=== PATIENT | male | born 1940 | race Caucasian/White ===

== ENCOUNTER → 2016-06-03 | Outpatient (CLI) | payer MEDICARE, OTHER ==
[~2016-06-03] MED LIST: CLOP75TA28 PO; FLUT250M2 IN; LORA2TAB89 PO; RANI150C11 PO; SIMV20TA90 PO; TAM04C PO; TRAZ50TA2 PO
== END | disposition home or self-care (01) ==
LOC: Rad HDHVI 10:06
PROVIDERS: ATTEND Internal Medicine Cardiovascular Disease
DX: J84.10 Pulmonary fibrosis, unspecified (principal)
CPT/HCPCS: 82103; 93306

== ENCOUNTER → 2016-09-26 | Outpatient (CLI) | payer MEDICARE, OTHER ==
[2016-09-26 09:50] VITALS: BP 121/78
[2016-09-26 10:35] VITALS: BP 121/76
== END | disposition home or self-care (01) ==
LOC: Rad HDHVI 09:28
PROVIDERS: ATTEND Internal Medicine Cardiovascular Disease
DX: I71.4 Abdominal aortic aneurysm, without rupture (principal); R42 Dizziness and giddiness; R06.02 Shortness of breath; Z87.448 Personal history of other diseases of urinary system
CPT/HCPCS: 74175; 82565; G0463

== ENCOUNTER → 2017-01-14 | Outpatient (CLI) | payer MEDICARE ==
[~2017-01-14] MED LIST changes: +CYANOCOBALAMIN (B-12) 1000 MCG/1 ML VIAL IM ONE; +CYANOCOBALAMIN (B-12) 1000 MCG/1 ML VIAL ONE
[2017-01-14 10:55] VITALS: BP 129/63
[2017-01-14 12:15] VITALS: BP 114/58
== END ==
LOC: CHF HDHVI 10:56
PROVIDERS: ATTEND Internal Medicine Cardiovascular Disease
DX: I50.9 Heart failure, unspecified (principal); R06.02 Shortness of breath; R53.83 Other fatigue; Z79.899 Other long term (current) drug therapy
CPT/HCPCS: 96372; G0463; J3420

== ENCOUNTER → 2017-01-26 | Outpatient (CLI) | payer MEDICARE ==
[~2017-01-26] MED LIST changes: +ADENOSINE 66 MG in GIVE UN-DILUTED 0 ML IV ONE; +ADENOSINE 90 MG/30 ML INJ IV ONE; -CYANOCOBALAMIN (B-12) 1000 MCG/1 ML VIAL IM ONE; -CYANOCOBALAMIN (B-12) 1000 MCG/1 ML VIAL ONE
== END | disposition home or self-care (01) ==
LOC: Rad HDHVI 10:00
PROVIDERS: ATTEND Internal Medicine Cardiovascular Disease
DX: I95.9 Hypotension, unspecified (principal); G20 Parkinson's disease; I25.2 Old myocardial infarction; I25.10 Atherosclerotic heart disease of native coronary artery without angina pectoris; E78.00 Pure hypercholesterolemia, unspecified; Z95.0 Presence of cardiac pacemaker
CPT/HCPCS: 78452; 93005; 93306; 96374; 96375; A9500; J0153

== ENCOUNTER → 2017-03-04 | Outpatient (CLI) | payer MEDICARE ==
[~2017-03-04] MED LIST changes: -ADENOSINE 66 MG in GIVE UN-DILUTED 0 ML IV ONE; -ADENOSINE 90 MG/30 ML INJ IV ONE; +IOHEXOL 350 MG/ML 100ML IJ ONE; +READI-CAT 2 (BARIUM SULF)(VANILLA SMOOTHIE) 450ML ONE
[2017-03-04 09:45] VITALS: BP 133/71
[2017-03-04 10:55] VITALS: BP 141/69
== END | disposition home or self-care (01) ==
LOC: Rad HDHVI 09:35
PROVIDERS: ATTEND Internal Medicine Cardiovascular Disease
DX: J84.89 Other specified interstitial pulmonary diseases (principal); J84.112 Idiopathic pulmonary fibrosis; R59.9 Enlarged lymph nodes, unspecified; Q33.8 Other congenital malformations of lung; I70.0 Atherosclerosis of aorta; N40.0 Benign prostatic hyperplasia without lower urinary tract symptoms; K57.30 Diverticulosis of large intestine without perforation or abscess without bleeding; I95.9 Hypotension, unspecified; G20 Parkinson's disease; R64 Cachexia
CPT/HCPCS: 71260; 74177; 82565; 96374; G0463; Q9967

== ENCOUNTER → 2017-03-18 | Outpatient (CLI) | payer MEDICARE ==
[~2017-03-18] VITALS: Ht 1 cm; Wt 0.5 kg
[~2017-03-18] MED LIST changes: +ACE30IS IN; +ALBU0.084 IN; +DIGO1TAB37 PO; +DOXY100C2 PO; +FINA5TAB4 PO; +FLU01T PO; +GENTAMICIN SULF 80 MG/2 ML VIAL ONE; +GENTAMICIN SULFATE 160 MG in D5W 5% 100 ML IV ONE; -IOHEXOL 350 MG/ML 100ML IJ ONE; +MEGE40TA15 PO; +MONT10TA34 PO; +POLY33504 PO; +PRE1T PO; -READI-CAT 2 (BARIUM SULF)(VANILLA SMOOTHIE) 450ML ONE; +ROFL1TAB2 PO; +SACC1CAP3 PO; +SIMV40TA96 PO; +TAMS0.4C36 PO; +VANCOMYCIN 1GM/250ML 250 ML IV ONE; +methylPREDNISolone SOD SUCC 125 MG/2 ML VL IM ONE; +methylPREDNISolone SOD SUCC 125 MG/2 ML VL ONE
[2017-03-18 15:58] LABS: Albumin 3.4 g/dL (3.4-5.0); BUN/Creatinine Ratio 22.2; Calcium 8.6 mg/dL (8.5-10.1); Magnesium 2.6 mg/dL (1.6-2.6); Potassium 3.5 mmol/L (3.5-5.1)
[2017-03-18 16:01] LABS: Bilirubin, Total 0.7 mg/dL (0.2-1.0); Total Protein 7.2 g/dL (6.4-8.2)
[2017-03-18 16:45] VITALS: BP 110/60
== END | disposition home or self-care (01) ==
LOC: Rad HDHVI 13:34
PROVIDERS: ATTEND Internal Medicine Cardiovascular Disease
DX: I10 Essential (primary) hypertension (principal); E55.9 Vitamin D deficiency, unspecified; I48.91 Unspecified atrial fibrillation; J44.9 Chronic obstructive pulmonary disease, unspecified; G20 Parkinson's disease; J40 Bronchitis, not specified as acute or chronic; Z79.899 Other long term (current) drug therapy
CPT/HCPCS: 36415; 80053; 80162; 82306; 83735; 96365; 96367; 96375; G0463; J1580; J2930; J3370

== ENCOUNTER → 2017-03-25 | Outpatient (CLI) | payer MEDICARE ==
[~2017-03-25] MED LIST changes: +ACETAMINOPHEN 500 MG TAB PO ONE; +CYANOCOBALAMIN (B-12) 1000 MCG/1 ML VIAL IM ONE; +CYANOCOBALAMIN (B-12) 1000 MCG/1 ML VIAL ONE; -GENTAMICIN SULF 80 MG/2 ML VIAL ONE; -GENTAMICIN SULFATE 160 MG in D5W 5% 100 ML IV ONE; +MVI in SODIUM CHLORIDE 0.9% 1,010 ML ONE; +MVI in SODIUM CHLORIDE 0.9% 500 ML IVB ONE; -VANCOMYCIN 1GM/250ML 250 ML IV ONE; -methylPREDNISolone SOD SUCC 125 MG/2 ML VL IM ONE; -methylPREDNISolone SOD SUCC 125 MG/2 ML VL ONE
[2017-03-25 11:59] LABS: Basophils # (auto) 0 uL; Basophils % (auto) 0.2 % (0.0-2.0); Eosinophils # (auto) 0 uL; Eosinophils % (auto) 0.4 % (0.0-7.0); Hematocrit 40.9 % (41.0-53.0); Hemoglobin 14.1 g/dL (13.5-17.5); Lymphocytes # (auto) 0.6 uL; Mean Corpuscular Hemoglobin 32.7 pg (28.0-32.0); Mean Corpuscular Hgb Conc. 34.6 g/dL (32.0-36.0); Mean Corpuscular Volume 94.6 fL (80.0-100.0); Monocytes # (auto) 0.5 uL; Monocytes % (auto) 7.8 % (0.0-12.0); Neutrophils # (auto) 5.8 uL; Neutrophils % (auto) 82.6 % (37.0-80.0); Nucleated Red Blood Cells % 0.2 %; Platelet Count (auto) 75 10^3/uL (140-450); Red Blood Cells 4.32 10^6/uL (4.5-5.90)
[2017-03-25 12:35] LABS: BUN/Creatinine Ratio 23.5; Calcium 8.5 mg/dL (8.5-10.1); Magnesium 2.8 mg/dL (1.6-2.6); Potassium 3.7 mmol/L (3.5-5.1)
[2017-03-25 13:25] VITALS: BP 112/58
== END | disposition home or self-care (01) ==
LOC: CHF HDHVI 10:22
PROVIDERS: ATTEND Internal Medicine Cardiovascular Disease
DX: I70.0 Atherosclerosis of aorta (principal); E83.42 Hypomagnesemia; I10 Essential (primary) hypertension; D64.9 Anemia, unspecified; D51.9 Vitamin B12 deficiency anemia, unspecified
CPT/HCPCS: 36415; 71046; 80048; 82607; 83735; 85025; 96365; 96366; 96372; G0463; J3411; J3420; J3475

== ENCOUNTER → 2017-03-30 | Outpatient (CLI) | payer MEDICARE ==
[~2017-03-30] MED LIST changes: -ACETAMINOPHEN 500 MG TAB PO ONE; -MVI in SODIUM CHLORIDE 0.9% 1,010 ML ONE; -MVI in SODIUM CHLORIDE 0.9% 500 ML IVB ONE; +methylPREDNISolone SOD SUCC 125 MG/2 ML VL IV ONE; +methylPREDNISolone SOD SUCC 125 MG/2 ML VL ONE
[2017-03-30 13:15] VITALS: BP 108/57
== END | disposition home or self-care (01) ==
LOC: CHF HDHVI 11:59
PROVIDERS: ATTEND Internal Medicine Cardiovascular Disease
DX: D64.9 Anemia, unspecified (principal); J44.9 Chronic obstructive pulmonary disease, unspecified; R09.3 Abnormal sputum; R05 Cough; N39.0 Urinary tract infection, site not specified
CPT/HCPCS: 87070; 87205; 96372; 96374; G0463; J2930; J3420

== ENCOUNTER 2017-04-04 16:14 | Inpatient (IN) | payer MEDICARE ==
[~2017-04-04] VITALS: Ht 1 cm; Wt 73.0 kg
[2017-04-04] MEDS: D5W/SOD CHLO 0.9% 1,000 ML IV SCH (07:00)
[~2017-04-04 16:14] MED LIST changes: -ACE30IS IN; -ALBU0.084 IN; -CYANOCOBALAMIN (B-12) 1000 MCG/1 ML VIAL IM ONE; -CYANOCOBALAMIN (B-12) 1000 MCG/1 ML VIAL ONE; -DIGO1TAB37 PO; -DOXY100C2 PO; -FINA5TAB4 PO; -FLU01T PO; -MEGE40TA15 PO; -MONT10TA34 PO; -POLY33504 PO; -PRE1T PO; -ROFL1TAB2 PO; -SACC1CAP3 PO; -SIMV40TA96 PO; -TAMS0.4C36 PO; -methylPREDNISolone SOD SUCC 125 MG/2 ML VL IV ONE; -methylPREDNISolone SOD SUCC 125 MG/2 ML VL ONE
[2017-04-04 16:30] VITALS: BP 117/73
[2017-04-04 17:00] VITALS: BP 117/74
[2017-04-04] MEDS ORDERED: DIGOXIN 0.25 MG TAB PO ONE (19:15)
[2017-04-04] MEDS ORDERED: D5W/SOD CHLO 0.9% 1,000 ML IV ONE (19:45)
[2017-04-04] MEDS ORDERED: POLY33504 PO (21:06)
[2017-04-04] MEDS ORDERED: DOXY100C2 PO (21:06)
[2017-04-04] MEDS ORDERED: SACC1CAP3 PO (21:06)
[2017-04-04] MEDS ORDERED: MEGE40TA15 PO (21:06)
[2017-04-04] MEDS ORDERED: PRE1T PO (21:06)
[2017-04-04] MEDS ORDERED: DIGO1TAB37 PO (21:06)
[2017-04-04] MEDS ORDERED: ROFL1TAB2 PO (21:06)
[2017-04-04] MEDS ORDERED: MONT10TA34 PO (21:06)
[2017-04-04] MEDS ORDERED: TAMS0.4C36 PO (21:06)
[2017-04-04] MEDS ORDERED: TRAZ50TA2 PO (21:06)
[2017-04-04] MEDS ORDERED: FINA5TAB4 PO (21:06)
[2017-04-04] MEDS ORDERED: ACE30IS IN (21:06)
[2017-04-04] MEDS ORDERED: LORA2TAB89 PO (21:06)
[2017-04-04] MEDS ORDERED: SIMV40TA96 PO (21:06)
[2017-04-04] MEDS ORDERED: ALBU0.084 IN (21:06)
[2017-04-04] MEDS ORDERED: FLU01T PO (21:06)
[2017-04-04] MEDS ORDERED: CLOP75TA28 PO (21:06)
[2017-04-04 21:34] VITALS: BP 119/61
[2017-04-04] MEDS: LORazepam 0.5 MG TAB PO PRN (22:28)
[2017-04-04] MEDS: ALBUTEROL SULF 2.5 MG/0.5ML(0.5%) NEB SOLN NEB SCH (22:50)
[2017-04-05] MEDS: MEGESTROL ACETATE 20 MG TAB PO SCH ×3 (00:20→21:30)
[2017-04-05] MEDS: traZODone HCL 50 MG TAB PO SCH ×2 (00:21→21:29)
[2017-04-05] MEDS: MONTELUKAST SODIUM 10 MG TAB PO SCH ×2 (00:21→21:29)
[2017-04-05 05:00] VITALS: BP 118/63
[2017-04-05] MEDS: ALBUTEROL SULF 2.5 MG/0.5ML(0.5%) NEB SOLN NEB SCH ×3 (05:44→19:22)
[2017-04-05] MEDS: D5W/SOD CHLO 0.9% 1,000 ML IV SCH ×2 (07:00→17:30)
[2017-04-05] MEDS: BOOST 8 ounces PO SCH ×3 (08:00→17:31)
[2017-04-05 08:47] VITALS: BP 116/60
[2017-04-05] MEDS: POLYETHYLENE GLYCOL 17 GM PWDR PO SCH (08:57)
[2017-04-05] MEDS: predniSONE 20 MG TAB PO SCH (08:58)
[2017-04-05] MEDS: FINASTERIDE 5 MG TAB PO SCH (08:58)
[2017-04-05] MEDS: CLOPIDOGREL BISULFATE 75 MG TAB PO SCH (08:58)
[2017-04-05] MEDS: DIGOXIN 0.25 MG TAB PO SCH (08:59)
[2017-04-05] MEDS: FLUDROCORTISONE ACETATE 0.1 MG TAB PO SCH (08:59)
[2017-04-05] MEDS: LORazepam 0.5 MG TAB PO PRN ×4 (09:00→21:28)
[2017-04-05] MEDS: DALIRESP 500 MCG PO SCH (09:01)
[2017-04-05] MEDS: FLORASTOR (S. BOULARDII) 250 MG CAP PO SCH (09:13)
[2017-04-05] MEDS ORDERED: FLORASTOR (S. BOULARDII) 250 MG CAP PO SCH (10:00)
[2017-04-05] MEDS: BUDESONIDE (INHALATION) 0.5 MG/2 ML NEB NEB SCH ×2 (11:45→19:22)
[2017-04-05 13:00] VITALS: BP 120/61
[2017-04-05] MEDS ORDERED: MAGNESIUM CITRATE SOLUTION 300 ML BTL PO ONE (13:30)
[2017-04-05 17:00] VITALS: BP 113/53
[2017-04-05] MEDS: TAMSULOSIN HYDROCHLORIDE 0.4 MG CAP PO SCH (17:31)
[2017-04-05 18:50] LABS: Basophils # (auto) 0 uL; Eosinophils # (auto) 0 uL; Hematocrit 41.4 % (41.0-53.0); Hemoglobin 13.7 g/dL (13.5-17.5); Lymphocytes # (auto) 0.5 uL; Lymphocytes % (auto) 7.3 % (10.0-50.0); Mean Corpuscular Hgb Conc. 33.2 g/dL (32.0-36.0); Mean Corpuscular Volume 96.6 fL (80.0-100.0); Monocytes # (auto) 0.1 uL; Neutrophils # (auto) 6.5 uL; Neutrophils % (auto) 90.7 % (37.0-80.0); Platelet Count (auto) 94 10^3/uL (140-450); Red Blood Cells 4.29 10^6/uL (4.5-5.90); White Blood Cell 7.2 10^3/uL (4.4-10.8)
[2017-04-05 19:03] LABS: INR 1.05 (0.9-1.15); Partial Thromboplastin Time 26.1 sec (22.64-33.71); Prothrombin Time 11.4 sec (9.37-12.3)
[2017-04-05 19:14] LABS: Albumin 2.7 g/dL (3.4-5.0); BUN/Creatinine Ratio 13.4; Bilirubin, Total 0.6 mg/dL (0.2-1.0); Calcium 7.7 mg/dL (8.5-10.1); Potassium 3.5 mmol/L (3.5-5.1); Total Protein 5.9 g/dL (6.4-8.2)
[2017-04-05 21:43] VITALS: BP 119/66
[2017-04-06] MEDS: ALBUTEROL SULF 2.5 MG/0.5ML(0.5%) NEB SOLN NEB SCH ×4 (00:32→19:31)
[2017-04-06] MEDS: D5W/SOD CHLO 0.9% 1,000 ML IV SCH ×3 (01:50→21:43)
[2017-04-06 03:31] VITALS: BP 119/66
[2017-04-06 05:00] VITALS: BP 105/57
[2017-04-06] MEDS: BUDESONIDE (INHALATION) 0.5 MG/2 ML NEB NEB SCH ×2 (06:48→19:31)
[2017-04-06] MEDS: BOOST 8 ounces PO SCH ×3 (08:00→18:00)
[2017-04-06] MEDS: LORazepam 0.5 MG TAB PO PRN ×3 (08:21→17:46)
[2017-04-06 09:17] VITALS: BP 108/56
[2017-04-06] MEDS: predniSONE 20 MG TAB PO SCH (11:16)
[2017-04-06] MEDS: FLUDROCORTISONE ACETATE 0.1 MG TAB PO SCH (11:16)
[2017-04-06] MEDS: MEGESTROL ACETATE 20 MG TAB PO SCH ×2 (11:16→21:24)
[2017-04-06] MEDS: DIGOXIN 0.25 MG TAB PO SCH (11:16)
[2017-04-06] MEDS: FINASTERIDE 5 MG TAB PO SCH (11:16)
[2017-04-06] MEDS: FLORASTOR (S. BOULARDII) 250 MG CAP PO SCH (11:17)
[2017-04-06] MEDS: CLOPIDOGREL BISULFATE 75 MG TAB PO SCH (11:17)
[2017-04-06] MEDS: DALIRESP 500 MCG PO SCH (11:18)
[2017-04-06] MEDS: POLYETHYLENE GLYCOL 17 GM PWDR PO SCH (11:18)
[2017-04-06 13:11] VITALS: BP 98/48
[2017-04-06 17:16] VITALS: BP 96/60
[2017-04-06] MEDS: TAMSULOSIN HYDROCHLORIDE 0.4 MG CAP PO SCH (17:46)
[2017-04-06] MEDS: MONTELUKAST SODIUM 10 MG TAB PO SCH (21:23)
[2017-04-06] MEDS: traZODone HCL 50 MG TAB PO SCH (21:23)
[2017-04-06 22:00] VITALS: BP 121/61
[2017-04-07 05:00] VITALS: BP 110/66
[2017-04-07] MEDS: ALBUTEROL SULF 2.5 MG/0.5ML(0.5%) NEB SOLN NEB SCH ×4 (06:00→18:53)
[2017-04-07] MEDS: BUDESONIDE (INHALATION) 0.5 MG/2 ML NEB NEB SCH ×2 (06:04→18:53)
[2017-04-07] MEDS: FLORASTOR (S. BOULARDII) 250 MG CAP PO SCH (08:07)
[2017-04-07] MEDS: D5W/SOD CHLO 0.9% 1,000 ML IV SCH ×2 (08:07→20:27)
[2017-04-07] MEDS: DALIRESP 500 MCG PO SCH (08:07)
[2017-04-07] MEDS: predniSONE 20 MG TAB PO SCH (08:07)
[2017-04-07] MEDS: BOOST 8 ounces PO SCH ×3 (08:07→17:08)
[2017-04-07] MEDS: FLUDROCORTISONE ACETATE 0.1 MG TAB PO SCH (08:08)
[2017-04-07] MEDS: POLYETHYLENE GLYCOL 17 GM PWDR PO SCH (08:08)
[2017-04-07] MEDS: FINASTERIDE 5 MG TAB PO SCH (08:08)
[2017-04-07] MEDS: CLOPIDOGREL BISULFATE 75 MG TAB PO SCH (08:08)
[2017-04-07] MEDS: MEGESTROL ACETATE 20 MG TAB PO SCH ×2 (08:08→21:08)
[2017-04-07] MEDS: DIGOXIN 0.25 MG TAB PO SCH (08:11)
[2017-04-07] MEDS: LORazepam 0.5 MG TAB PO PRN ×3 (08:11→17:08)
[2017-04-07 09:00] VITALS: BP 132/60
[2017-04-07 14:03] VITALS: BP 157/93
[2017-04-07] MEDS: TAMSULOSIN HYDROCHLORIDE 0.4 MG CAP PO SCH (17:08)
[2017-04-07 17:37] VITALS: BP 120/65
[2017-04-07] MEDS: MONTELUKAST SODIUM 10 MG TAB PO SCH (21:08)
[2017-04-07] MEDS: traZODone HCL 50 MG TAB PO SCH (21:08)
[2017-04-07 22:00] VITALS: BP 119/65
[2017-04-08 05:00] VITALS: BP 132/70
[2017-04-08] MEDS: D5W/SOD CHLO 0.9% 1,000 ML IV SCH ×2 (05:57→17:44)
[2017-04-08] MEDS: BUDESONIDE (INHALATION) 0.5 MG/2 ML NEB NEB SCH ×2 (07:06→20:50)
[2017-04-08] MEDS: ALBUTEROL SULF 2.5 MG/0.5ML(0.5%) NEB SOLN NEB SCH ×5 (07:06→20:50)
[2017-04-08] MEDS: BOOST 8 ounces PO SCH ×3 (07:54→17:44)
[2017-04-08] MEDS: LORazepam 0.5 MG TAB PO PRN ×3 (08:02→17:44)
[2017-04-08 09:00] VITALS: BP 120/66
[2017-04-08] MEDS: FINASTERIDE 5 MG TAB PO SCH (09:11)
[2017-04-08] MEDS: CLOPIDOGREL BISULFATE 75 MG TAB PO SCH (09:11)
[2017-04-08] MEDS: FLORASTOR (S. BOULARDII) 250 MG CAP PO SCH (09:11)
[2017-04-08] MEDS: DIGOXIN 0.25 MG TAB PO SCH (09:12)
[2017-04-08] MEDS: FLUDROCORTISONE ACETATE 0.1 MG TAB PO SCH (09:12)
[2017-04-08] MEDS: predniSONE 20 MG TAB PO SCH (09:12)
[2017-04-08] MEDS: DALIRESP 500 MCG PO SCH (09:12)
[2017-04-08] MEDS: MEGESTROL ACETATE 20 MG TAB PO SCH ×2 (09:12→22:03)
[2017-04-08] MEDS: POLYETHYLENE GLYCOL 17 GM PWDR PO SCH (09:13)
[2017-04-08 13:00] VITALS: BP 119/63
[2017-04-08 17:00] VITALS: BP 122/63
[2017-04-08] MEDS: TAMSULOSIN HYDROCHLORIDE 0.4 MG CAP PO SCH (17:44)
[2017-04-08 22:00] VITALS: BP 121/66
[2017-04-08] MEDS: traZODone HCL 50 MG TAB PO SCH (22:03)
[2017-04-08] MEDS: MONTELUKAST SODIUM 10 MG TAB PO SCH (22:03)
[2017-04-09] MEDS: D5W/SOD CHLO 0.9% 1,000 ML IV SCH ×2 (00:30→10:42)
[2017-04-09 01:31] VITALS: BP 121/66
[2017-04-09 05:00] VITALS: BP 117/60
[2017-04-09] MEDS: ALBUTEROL SULF 2.5 MG/0.5ML(0.5%) NEB SOLN NEB SCH ×2 (07:10→12:30)
[2017-04-09] MEDS: BUDESONIDE (INHALATION) 0.5 MG/2 ML NEB NEB SCH (07:10)
[2017-04-09] MEDS: BOOST 8 ounces PO SCH ×2 (07:57→11:42)
[2017-04-09] MEDS: LORazepam 0.5 MG TAB PO PRN ×2 (08:20→12:07)
[2017-04-09] MEDS: MEGESTROL ACETATE 20 MG TAB PO SCH (08:22)
[2017-04-09] MEDS: FLORASTOR (S. BOULARDII) 250 MG CAP PO SCH (08:22)
[2017-04-09] MEDS: DIGOXIN 0.25 MG TAB PO SCH (08:22)
[2017-04-09] MEDS: FINASTERIDE 5 MG TAB PO SCH (08:22)
[2017-04-09] MEDS: FLUDROCORTISONE ACETATE 0.1 MG TAB PO SCH (08:22)
[2017-04-09] MEDS: CLOPIDOGREL BISULFATE 75 MG TAB PO SCH (08:22)
[2017-04-09] MEDS: POLYETHYLENE GLYCOL 17 GM PWDR PO SCH ×2 (08:23→08:24)
[2017-04-09] MEDS: predniSONE 20 MG TAB PO SCH (08:23)
[2017-04-09] MEDS: DALIRESP 500 MCG PO SCH (08:39)
[2017-04-09 09:00] VITALS: BP 119/64
[2017-04-09 13:00] VITALS: BP 133/69
== END 2017-04-09 17:00 | DRG 189 ==
LOC: TELE-WESTW 16:14
PROVIDERS: ADMIT Internal Medicine Cardiovascular Disease; ATTEND Internal Medicine Cardiovascular Disease
DX: J96.90 Respiratory failure, unspecified, unspecified whether with hypoxia or hypercapnia (principal); E43 Unspecified severe protein-calorie malnutrition; J84.10 Pulmonary fibrosis, unspecified; G20 Parkinson's disease; Z99.81 Dependence on supplemental oxygen; E86.1 Hypovolemia; J44.9 Chronic obstructive pulmonary disease, unspecified; F32.9 Major depressive disorder, single episode, unspecified; I10 Essential (primary) hypertension; M79.7 Fibromyalgia; Z88.1 Allergy status to other antibiotic agents; Z88.0 Allergy status to penicillin; Z88.8 Allergy status to other drugs, medicaments and biological substances
CPT/HCPCS: 36415; 71045; 80053; 85025; 85610; 85730; 94010; 94640; 97116; 97163; 97530; J7042